=== PATIENT | male | born 1965 | race American Indian/Alaskan Native ===

== ENCOUNTER 2017-08-04 10:24 | Emergency (ER) | payer SELFPAY | END 2017-08-04 11:37 | disposition left against medical advice (07) | LOC: ED 10:24 | DX: M25.561 Pain in right knee (principal); Z53.21 Procedure and treatment not carried out due to patient leaving prior to being seen by health care provider ==

== ENCOUNTER 2020-05-05 04:42 | Emergency (ER) | payer MEDICARE ==
[2020-05-05] MEDS ORDERED: ASPIRIN 325 MG TAB PO ONE (05:01)
[2020-05-05 05:24] LABS: Hematocrit 42.8 % (35.5-45.6); Hemoglobin 14.5 gm/dl (11.8-15.2); Mean Corpuscular HGB Conc 34 % (32-34); Mean Corpuscular Volume 97 fl (84-94); Platelet Count 333 K/mm3 (140-440); Red Cell Distribution Width 13.4 % (13.2-15.2)
[2020-05-05 05:25] LABS: Basophils % (Auto) 0.3 % (0.0-1.8); Eosinophils % (Auto) 0.1 % (0.0-4.3); Lymphocytes # (Auto) 0.8 K/mm3 (1.2-5.4); Lymphocytes % (Auto) 7.2 % (13.4-35.0); Monocytes # (Auto) 0.3 K/mm3 (0.0-0.8); Monocytes % (Auto) 2.3 % (0.0-7.3)
[2020-05-05 05:47] LABS: BUN/Creatinine Ratio 16; Blood Urea Nitrogen 21 mg/dL (9-20); Calcium 9.7 mg/dL (8.4-10.2); Hemolysis Index 11
--- NOTE | 2020-05-05 06:02 | XRay Report ---
CHEST 1 VIEW INDICATION / CLINICAL INFORMATION: Chest Pain. FINDINGS: SUPPORT DEVICES: None. HEART / MEDIASTINUM: No significant abnormality. LUNGS / PLEURA: No significant pulmonary or pleural abnormality. No pneumothorax. ADDITIONAL FINDINGS: No significant additional findings. IMPRESSION: 1. No acute findings. Signer Name: Josep Uriostegui MD Signed: 05/05/2020 5:57 AM Workstation Name: [id number]
[2020-05-05] MEDS ORDERED: ALUM-MAG HYDROXIDE-SIMETHICONE 200-200-20MG/5ML ORAL LIQD 30 ML PO ONE (06:34)
[2020-05-05] MEDS ORDERED: oxyCODONE /ACETAMINOPHEN 5-325MG TAB PO ONE (06:34)
[2020-05-05] MEDS ORDERED: LIDOCAINE VISCOUS 2% 15 ML ORAL LIQD PO ONE (06:34)
--- NOTE | 2020-05-05 06:39 | Emergency Department Report ---
ED General Adult HPI - General Chief complaint: Chest Pain Stated complaint: PAIN/STOMACH/BACK/CHEST Time Seen by Provider: 05/05/20 06:06 Source: patient Mode of arrival: Ambulatory Limitations: No Limitations - History of Present Illness Initial comments: Patient is a 54-year-old male who presents with chest pain back pain and vomiting has been going on for 1 day. Patient's pain is a 6 out of 10 says the pain is epigastric nothing makes it better nothing makes it worse patient denies having any nausea he has a past medical history of hypertension he states that he was just resting when this pain started he states that his chest pain has now resolved. He just has back and stomach pain. - Related Data Previous Rx's Medication Instructions Recorded Last Taken Type Ondansetron [Zofran Odt] 4 mg PO Q8HR #20 tab.rapdis 05/05/20 Unknown Rx Allergies Allergy/AdvReac Type Severity Reaction Status Date / Time No Known Allergies Allergy Unverified 05/05/20 05:00 ED Review of Systems ROS: Stated complaint: PAIN/STOMACH/BACK/CHEST Other details as noted in HPI Constitutional: denies: chills, fever Eyes: denies: eye pain, eye discharge, vision change ENT: denies: ear pain, throat pain Respiratory: denies: cough, shortness of breath, wheezing Cardiovascular: chest pain. denies: palpitations Endocrine: no symptoms reported Gastrointestinal: abdominal pain. denies: nausea, diarrhea Genitourinary: denies: urgency, dysuria Musculoskeletal: back pain. denies: joint swelling, arthralgia Skin: denies: rash, lesions Neurological: denies: headache, weakness, paresthesias Psychiatric: denies: anxiety, depression Hematological/Lymphatic: denies: easy bleeding, easy bruising ED Past Medical Hx - Past Medical History Previous Medical History?: Yes Hx Hypertension: Yes - Surgical History Past Surgical History?: No - Social History Smoking Status: Current Every Day Smoker Substance Use Type: None - Medications Home Medications: Home Medications Medication Instructions Recorded Confirmed Last Taken Type Ondansetron [Zofran Odt] 4 mg PO Q8HR #20 tab.rapdis 05/05/20 Unknown Rx ED Physical Exam - General Limitations: No Limitations General appearance: alert, in no apparent distress - Head Head exam: Present: atraumatic, normocephalic - Eye Eye exam: Present: normal appearance - ENT ENT exam: Present: mucous membranes moist - Neck Neck exam: Present: normal inspection - Respiratory Respiratory exam: Present: normal lung sounds bilaterally. Absent: respiratory distress - Cardiovascular Cardiovascular Exam: Present: regular rate, normal rhythm. Absent: systolic murmur, diastolic murmur, rubs, gallop - GI/Abdominal GI/Abdominal exam: Present: soft, normal bowel sounds - Rectal Rectal exam: Present: deferred - Extremities Exam Extremities exam: Present: normal inspection - Back Exam Back exam: Present: normal inspection - Neurological Exam Neurological exam: Present: alert, oriented X3 - Psychiatric Psychiatric exam: Present: normal affect, normal mood - Skin Skin exam: Present: warm, dry, intact, normal color. Absent: rash ED Course Vital Signs 05/05/20 05/05/20 05/05/20 04:50 05:49 06:00 Temperature 97.6 F Pulse Rate 103 H 99 H 99 H Respiratory 18 23 22 Rate Blood Pressure 152/97 167/111 Blood Pressure [Left] O2 Sat by Pulse 94 Oximetry 05/05/20 05/05/20 05/05/20 06:15 06:30 06:45 Temperature Pulse Rate 102 H 106 H 99 H Respiratory 24 18 22 Rate Blood Pressure 167/111 176/118 176/118 Blood Pressure [Left] O2 Sat by Pulse 97 97 96 Oximetry 05/05/20 05/05/20 05/05/20 07:01 07:15 07:31 Temperature Pulse Rate 104 H 103 H 109 H Respiratory 18 24 18 Rate Blood Pressure 190/107 190/107 181/99 Blood Pressure [Left] O2 Sat by Pulse 97 94 97 Oximetry 05/05/20 05/05/20 05/05/20 08:24 08:25 08:30 Temperature Pulse Rate 99 H 98 H 101 H Respiratory 21 20 23 Rate Blood Pressure 185/107 183/116 Blood Pressure 185/107 [Left] O2 Sat by Pulse 96 94 Oximetry 05/05/20 05/05/20 05/05/20 08:45 09:00 09:15 Temperature Pulse Rate 99 H 103 H 111 H Respiratory 22 22 18 Rate Blood Pressure 183/116 188/118 183/116 Blood Pressure [Left] O2 Sat by Pulse 95 95 95 Oximetry 05/05/20 05/05/20 05/05/20 09:30 09:45 10:00 Temperature Pulse Rate 103 H 105 H 103 H Respiratory 26 H 25 H 23 Rate Blood Pressure 191/121 191/121 191/117 Blood Pressure [Left] O2 Sat by Pulse 95 93 98 Oximetry 05/05/20 05/05/20 05/05/20 10:15 10:30 10:55 Temperature Pulse Rate 105 H Respiratory Rate Blood Pressure 191/121 178/127 178/129 Blood Pressure [Left] O2 Sat by Pulse 94 Oximetry ED Medical Decision Making - Lab Data Result diagrams: 05/05/20 05:10 05/05/20 05:10 Lab Results 05/05/20 05/05/20 05/05/20 Range/Units 05:10 05:10 05:10 WBC 11.6 H (4.5-11.0) K/mm3 RBC 4.40 (3.65-5.03) M/mm3 Hgb 14.5 (11.8-15.2) gm/dl Hct 42.8 (35.5-45.6) % MCV 97 H (84-94) fl MCH 33 H (28-32) pg MCHC 34 (32-34) % RDW 13.4 (13.2-15.2) % Plt Count 333 (140-440) K/mm3 Lymph % (Auto) 7.2 L (13.4-35.0) % [place] % (Auto) 2.3 (0.0-7.3) % Eos % (Auto) 0.1 (0.0-4.3) % Baso % (Auto) 0.3 (0.0-1.8) % Lymph # (Auto) 0.8 L (1.2-5.4) K/mm3 [place] # (Auto) 0.3 (0.0-0.8) K/mm3 Eos # (Auto) 0.0 (0.0-0.4) K/mm3 Baso # (Auto) 0.0 (0.0-0.1) K/mm3 Seg Neutrophils % [employer] Seg Neutrophils # 10.4 H (1.8-7.7) K/mm3 Sodium 141 (137-145) mmol/L Potassium 4.7 (3.6-5.0) mmol/L Chloride 101.8 (98-107) mmol/L Carbon Dioxide 27 (22-30) mmol/L Anion Gap 17 mmol/L BUN 21 H (9-20) mg/dL Creatinine 1.3 (0.8-1.3) mg/dL Estimated GFR > 60 ml/min BUN/Creatinine Ratio 16 % Glucose 152 H (75-100) mg/dL Calcium 9.7 (8.4-10.2) mg/dL Troponin T < 0.010 (0.00-0.029) ng/mL Lipase 13 (13-60) units/L - EKG Data 05/05/20 06:40 EKG shows sinus tachycardia at rate [address] segment elevation no T wave inversion T wave flattening in the anterior lateral leads. - Radiology Data Radiology results: report reviewed, image reviewed Chest x-ray: Shows no acute cardiopulmonary disease CT scan: Inflammation around the retroperitoneum - Medical Decision Making Chief medical diagnosis: GERD Differential medical diagnosis: Non-STEMI, electrolyte abnormality I will get CBC, BMP, troponin, chest x-ray, oral pain medicine, aspirin I will reevaluate the patient Critical care attestation.: If time is entered above; I have spent that time in minutes in the direct care of this critically ill patient, excluding procedure time. ED Disposition Clinical Impression: Abdominal pain Qualifiers: Abdominal location: generalized Qualified Code(s): R10.84 - Generalized abdominal pain Chest pain Qualifiers: Chest pain type: other chest pain Qualified Code(s): R07.89 - Other chest pain; R07.8 - Other chest pain Nausea & vomiting Qualifiers: Vomiting type: unspecified Vomiting Intractability: unspecified Qualified Code(s): R11.2 - Nausea with vomiting, unspecified Disposition: DC- TO HOME OR SELFCARE Is pt being admited?: No Does the pt Need Aspirin: No Condition: Stable Instructions: Chest Pain (ED) Prescriptions: Ondansetron [Zofran Odt] 4 mg PO Q8HR #20 tab.rapdis Referrals: PRIMARY CAREMD [Primary Care Provider] - 3-5 Days TASHIA CARROLL MD [Staff Physician] - 3-5 Days
[2020-05-05] MEDS ORDERED: cloNIDine 0.1 MG TAB ONE (10:52)
[2020-05-05] MEDS ORDERED: cloNIDine 0.1 MG TAB PO ONE (10:54)
--- NOTE | 2020-05-05 13:23 | Cat Scan Report ---
CT ABDOMEN AND PELVIS WITH CONTRAST INDICATION / CLINICAL INFORMATION: MAIN. TECHNIQUE: Axial CT images were obtained through the abdomen and pelvis after 100 cc Omnipaque 350 milligrams pe rcent IV contrast. All CT scans at this location are performed using CT dose reduction for ALARA by means of automated exposure control. COMPARISON: None available. FINDINGS: LOWER CHEST: Small right pleural effusion-thickening is present LIVER: No significant abnormality. GALLBLADDER: No significant abnormality. BILE DUCTS: No significant abnormality. PANCREAS: No significant abnormality. SPLEEN: No significant abnormality. ADRENALS: No significant abnormality. RIGHT KIDNEY and URETER: No significant abnormality. LEFT KIDNEY and URETER: No significant abnormality. STOMACH and SMALL BOWEL: No significant abnormality. COLON: No significant abnormality. APPENDIX: No significant abnormality. PERITONEUM: Reticulation of fat is present in the infrarenal region posteriorly extending along the a nterior psoas margins right greater than left. LYMPH NODES: No significant adenopathy. AORTA and ARTERIES: No significant abnormality. IVC and VEINS: No significant abnormality. URINARY BLADDER: No significant abnormality. REPRODUCTIVE ORGANS: No significant abnormality. ADDITIONAL FINDINGS: None. SKELETAL SYSTEM: Degenerative changes lumbar spine is present IMPRESSION: 1. Inflammatory changes retroperitoneum along the anterior aspect of the psoas muscles, etiology uncl ear. Recommend clinical correlation and correlation with laboratory results Signer Name: Alberto Vaca MD Signed: 05/05/2020 1:18 PM Workstation Name: [id number]
[2020-05-05 14:19] VITALS: BP 150/99
== END 2020-05-05 14:18 | disposition home or self-care (01) ==
LOC: ED 04:42
DX: R11.2 Nausea with vomiting, unspecified (principal); R10.9 Unspecified abdominal pain; R07.9 Chest pain, unspecified; I10 Essential (primary) hypertension; F17.200 Nicotine dependence, unspecified, uncomplicated; Z79.899 Other long term (current) drug therapy
CPT/HCPCS: 36415; 71045; 74177; 80048; 83690; 84484; 85025; 93005; 99285; Q9967